=== PATIENT | female | born 1985 | race Caucasian/White ===

== ENCOUNTER 2017-05-09 14:54 | Emergency (ER) | payer OTHER ==
[~2017-05-09] VITALS: Ht 154.9 cm; Wt 103.6 kg
[2017-05-09 15:41] VITALS: Ht 154.9 cm; Wt 103.6 kg
[2017-05-09 18:20] LABS: BASOPHIL % 0.5 % (0-2); PLATELET COUNT 320 x10^3mcL (130-400); RED CELL DISTRIBUTION WIDTH 13.8 % (11.5-14.5)
[2017-05-09 18:54] LABS: ALKALINE PHOSPHATASE 76 U/L (46-116); ALT/SGPT 43 U/L (14-59); AST/SGOT 28 U/L (15-37); BILIRUBIN TOTAL 0.31 mg/dL (0.20-1.00); CALCIUM 8.8 mg/dL (8.5-10.1); CHLORIDE SERUM 104 mmol/L (98-107); CREATININE SERUM 0.7 mg/dL (0.6-1.0); GFR1 > 60 mL/min; GLUCOSE SERUM 81 mg/dL (74-106); POTASSIUM SERUM 3.6 mmol/L (3.5-5.1); SODIUM SERUM 140 mmol/L (136-145)
[2017-05-09 18:57] LABS: ALBUMIN 3.3 g/dL (3.4-5.0)
[2017-05-09 20:00] VITALS: BP 154/97
== END 2017-05-09 20:00 | disposition home or self-care (01) ==
LOC: ED 14:54
PROVIDERS: Emergency Medicine
DX: L03.116 Cellulitis of left lower limb (principal); E66.8 Other obesity; Z68.41 Body mass index [BMI] 40.0-44.9, adult
CPT/HCPCS: 36415; J0696; Q0092